=== PATIENT | female | born 1980 | race Caucasian/White ===

== ENCOUNTER 2023-10-11 09:50 | Day surgery (SDC) | payer OTHER ==
[~2023-10-11] VITALS: Ht 162.6 cm; Wt 66.2 kg
[~2023-10-11 09:50] MED LIST: ABILIFY10 MG PO; DEPAKOTE250 MG PO; DEPAKOTE500 MG PO; GABAPENTIN300 M2 PO; HYDROXYZ HCL25 MG PO; SEROQUEL100 MG PO
[2023-10-11 11:10] VITALS: BP 105/59
== END 2023-10-11 11:15 | disposition home or self-care (01) ==
LOC: ORM 09:50
PROVIDERS: ATTEND Student in an Organized Health Care Education/Training Program
DX: G89.4 Chronic pain syndrome (principal); M46.1 Sacroiliitis, not elsewhere classified; M54.16 Radiculopathy, lumbar region